=== PATIENT | female | born 1955 | race Caucasian/White ===

== ENCOUNTER 2022-03-18 20:16 | Inpatient (IN) | payer SELFPAY ==
[~2022-03-18] VITALS: Ht 167.6 cm; Wt 80.7 kg
[2022-03-18] MEDS ORDERED: IOHEXOL-350 100 ML BOTTLE ONE (21:41)
[2022-03-18 21:49] LABS: CLARITY URINE TURBID (CLEAR); COLOR URINE YELLOW (YELLOW); KETONES URINE NEGATIVE (NEGATIVE); LEUKOCYTE ESTERASE URINE 3+ (NEGATIVE); NITRITE URINE NEGATIVE (NEGATIVE); OCCULT BLOOD URINE 2+ (NEGATIVE); PROTEIN URINE 2+ (NEGATIVE); SPECIFIC GRAVITY URINE 1.014 (1.005-1.030); UROBILINOGEN URINE 0.2 E.U./dL (0.2-1.0)
[2022-03-18 21:58] LABS: METHADONE URINE SCREEN NEGATIVE (NEGATIVE); OPIATES URINE SCREEN NEGATIVE (NEGATIVE)
[2022-03-18 21:59] LABS: *AMPHETAMINES SCREEN URINE NEGATIVE (NEGATIVE); *BARBITURATES SCREEN URINE NEGATIVE (NEGATIVE); *BENZODIAZEPINES SCREEN URINE NEGATIVE (NEGATIVE); *COCAINE SCREEN URINE NEGATIVE (NEGATIVE); CANNABINOID URINE SCREEN NEGATIVE (NEGATIVE); PHENCYCLIDINE URINE SCREEN NEGATIVE (NEGATIVE)
[2022-03-18] MEDS ORDERED: CEFTRIAXONE 1 G PREMIX 50 ML IV ONE (22:45)
[2022-03-18] MEDS ORDERED: SODIUM CHLORIDE 0.9% 1,000 ML IV ONE (22:45)
[2022-03-18 23:07] LABS: BASOPHILS % 0.5 % (0.0-2.0); EOSINOPHILS % 1.1 % (0.0-5.0); HEMATOCRIT. 40.1 % (36.0-48.0); HEMOGLOBIN. 13.8 g/dL (12.0-16.0); MEAN CORPUSCULAR HEMOGLOBIN 31.1 pg (28.0-32.0); MEAN CORPUSCULAR VOLUME 90.1 fL (81.0-99.0); MEAN PLATELET VOLUME 9.7 fl (7.4-10.4); MONOCYTES % 12.4 % (2.0-8.0); PLATELET 238 x1000/uL (130-400); RED BLOOD CELL COUNT 4.45 mill/uL (4.2-5.4); RED CELL DISTRIBUTION WIDTH 12.7 % (11.6-14.6)
[2022-03-18 23:14] LABS: CHLORIDE 94 mEq/L (98-107)
[2022-03-18 23:18] LABS: ETHANOL BLOOD < 10 mg/dL
[2022-03-18 23:22] LABS: CREATINE KINASE 34 IU/L (26-192)
[2022-03-19] MEDS ORDERED: SODIUM CHLORIDE 0.9% 1,000 ML IV ONE
[2022-03-19 00:42] LABS: PHOSPHORUS 3.6 mg/dL (2.5-4.9)
[2022-03-19 08:00] VITALS: BP 142/81
[2022-03-19 09:11] VITALS: BP 142/81
[2022-03-19 12:00] VITALS: BP 135/78
[2022-03-19] MEDS ORDERED: DIATR MEGLU/DIATRIZOATE SOLN 30ML PO SCH (12:00)
[2022-03-19 12:25] LABS: CHLORIDE 104 mEq/L (98-107)
[2022-03-19] MEDS ORDERED: DEXT 5%/0.45% NACL KCL 40MEQ/L 1,000 ML IV SCH (13:00)
[2022-03-19] MEDS ORDERED: POTASSIUM CHLORIDE INJ 40 MEQ in DEXT 5%/0.45% NACL 1000ML 1,000 ML IV SCH (14:00)
[2022-03-19 16:00] VITALS: BP 115/72
[2022-03-19] MEDS: DEXT 5%/0.45% NACL KCL 20MEQ/L 1,000 ML IV SCH ×2 (18:25→21:39)
[2022-03-19 20:00] VITALS: BP 132/74
[2022-03-19 20:16] LABS: PHOSPHORUS 2.3 mg/dL (2.5-4.9)
[2022-03-19] MEDS ORDERED: POTASSIUM CHLORIDE 20MEQ TABLET SR PO NR (20:36)
[2022-03-19 20:38] LABS: HEPATITIS B SURFACE AB 6.1 mIU/mL
[2022-03-19] MEDS ORDERED: POTASSIUM CHLORIDE 20MEQ TABLET SR PO SCH (22:45)
[2022-03-20] VITALS: BP 129/61
[2022-03-20] MEDS ORDERED: POTASSIUM CHLORIDE 20MEQ TABLET SR PO SCH (01:45)
[2022-03-20 04:00] VITALS: BP 133/65
[2022-03-20] MEDS: DEXT 5%/0.45% NACL KCL 20MEQ/L 1,000 ML IV SCH (06:53)
[2022-03-20 08:00] VITALS: BP 146/81
[2022-03-20] MEDS ORDERED: INFLUENZA VACCINE 05/PF 0.5 ML SYRINGE IM ONE (09:00)
[2022-03-20] MEDS ORDERED: PNEUMOCOCCAL 23-VAL P-SAC VAC 0.5 ML IM ONE (09:00)
[2022-03-20 13:28] VITALS: BP 143/83
[2022-03-20] MEDS ORDERED: POTASSIUM CHLORIDE 10MEQ TABLET SR PO NR (13:30)
[2022-03-21 09:12] LABS: ANTI-NUCLEAR ANTIBODIES DIRECT Negative (Negative)
[2022-03-21 13:11] LABS: A/G RATIO 1.1 (0.7-1.7); ALBUMIN 3.3 g/dL (2.9-4.4); ALPHA-1-GLOBULIN 0.3 g/dL (0.0-0.4); ALPHA-2-GLOBULIN 0.9 g/dL (0.4-1.0); GAMMA GLOBULINS 0.8 g/dL (0.4-1.8); GLOBULIN TOTAL 3.1 g/dL (2.2-3.9); M-SPIKE Not Observed g/dL (Not Observed); TOTAL PROTEIN SERUM 6.4 g/dL (6.0-8.5)
[2022-03-23 19:10] LABS: ANTI-MYELOPEROXIDASE AB < 9.0 U/mL (0.0-9.0)
[2022-03-25 13:07] LABS: ANTI-PROTEINASE 3 ABS < 3.5 U/mL (0.0-3.5)
[2022-03-26 13:11] LABS: ATYPICAL P-ANCA <1:20 titer (Neg:<1:20); CYTOPLASMIC C-ANCA <1:20 titer (Neg:<1:20); PERINUCLEAR P-ANCA <1:20 titer (Neg:<1:20)
== END 2022-03-20 14:02 | disposition home or self-care (01) | DRG 241 ==
LOC: ER 20:16 → MICUSO 23:57 → EDBEDREQTM 03-19 00:14 → EDBEDREQ 03-19 00:14 → 8WST 03-19 09:34
PROVIDERS: ADMIT Internal Medicine; ATTEND Internal Medicine
DX: K29.70 Gastritis, unspecified, without bleeding (principal); N17.9 Acute kidney failure, unspecified; E86.0 Dehydration; C90.00 Multiple myeloma not having achieved remission; E83.52 Hypercalcemia; E87.6 Hypokalemia; K52.9 Noninfective gastroenteritis and colitis, unspecified; I25.10 Atherosclerotic heart disease of native coronary artery without angina pectoris; Z20.822 Contact with and (suspected) exposure to COVID-19; F17.200 Nicotine dependence, unspecified, uncomplicated; I77.6 Arteritis, unspecified
CPT/HCPCS: 36415; 70496; 70498; 70551; 71045; 71250; 74176; 76770; 80053; 80305; 80320; 81003; 82550; 82575; 82962; 83520; 83605; 83735; 84100; 84155; 84165; 84443; 84484; 85025; 86038; 86256; 86706; 86803; 90686; 90732; 93005; 99291; J0696; J3480; J7030; Q9967; G0480